=== PATIENT | female | born 1995 | race Caucasian/White ===

== ENCOUNTER 2022-10-09 14:22 | Emergency (ER) | payer OTHER ==
[~2022-10-09] VITALS: Ht 162.6 cm; Wt 72.6 kg
[2022-10-09 14:36] VITALS: BP 115/68
--- NOTE | 2022-10-09 14:40 | NUR ---
AMB. TO BED 8 W NO DIFFICULTY. NO DISTRESS. PT. WILL PRODUCE URINE SAMPLE
[2022-10-09] MEDS ORDERED: NACL 0.9% 1,000 ML IV SCH (15:05)
[2022-10-09] MEDS ORDERED: KETOROLAC 30 MG/ML VIAL IVP ONE (15:05)
[2022-10-09] MEDS ORDERED: ONDANSETRON 4 MG/2 ML VIAL IVP ONE (15:05)
--- NOTE | 2022-10-09 15:07 | NUR ---
27 Y/O F BIB SELF C/O R MID SIDE ABD PAIN 12/22 SINCE THIS MORNING. PT ALSOC C/O N/V. NKA OR PMH
--- NOTE | 2022-10-09 15:18 | NUR ---
The patient's care was reviewed and supervised by EBENEZER DÍAZ RN.
--- NOTE | 2022-10-09 15:19 | NUR ---
ULTRASOUND AT BEDSIDE.
[2022-10-09 15:47] LABS: BASOPHILS # (AUTO) 0.1 K/uL (0.00-0.22); BASOPHILS % (AUTO) 1.3 % (0.0-2.0); EOSINOPHILS # (AUTO) 0.1 K/uL (0-0.4); EOSINOPHILS % (AUTO) 1.9 % (0.0-4.0); HEMATOCRIT 32.7 % (36-48); HEMOGLOBIN 12.3 g/dL (12.0-16.0); LYMPHOCYTES # (AUTO) 1.6 K/uL (2.5-16.5); LYMPHOCYTES % (AUTO) 21.6 % (20.5-51.1); MEAN CORPUSCULAR HEMOGLOBIN 33 pg (27-31); MEAN CORPUSCULAR HGB CONC 38 g/dL (33-37); MEAN CORPUSCULAR VOLUME 88.1 fL (80-94); MONOCYTES # (AUTO) 0.7 K/uL (0.8-1.0); MONOCYTES % (AUTO) 9.7 % (1.7-9.3); NEUTROPHILS # (AUTO) 4.8 K/uL (1.8-7.7); NEUTROPHILS % (AUTO) 65.5 % (42.2-75.2); PLATELET COUNT (AUTO) 251 K/uL (140-450); RED BLOOD CELL COUNT(AUTO) 3.71 MIL/uL (4.20-5.40); RED CELL DISTRIBUTION WIDTH 16.5 % (11.6-13.7); WHITE BLOOD COUNT (AUTO) 7.3 K/uL (4.8-10.8)
[2022-10-09 15:52] LABS: APPEARANCE,URINE CLEAR (CLEAR); BILIRUBIN,URINE NEGATIVE (NEGATIVE); BLOOD, URINE NEGATIVE (NEGATIVE); COLOR,URINE YELLOW (YELLOW); LEUKOCYTE ESTERASE ,URINE NEGATIVE (NEGATIVE); NITRITE, URINE NEGATIVE (NEGATIVE); UGLUCOSE NEGATIVE (NEGATIVE)
[2022-10-09 15:59] LABS: ALBUMIN 3.4 g/dL (3.4-5.0); ANION GAP 10.9 (8-16); CARBON DIOXIDE 27.2 mmol/L (21-32); CREATININE 0.8 mg/dL (0.6-1.3); POTASSIUM 4.1 mmol/L (3.5-5.1); TOTAL BILIRUBIN 1.6 mg/dL (0.0-1.0)
[2022-10-09] MEDS ORDERED: ONDA8TAB87 PO (16:30)
[2022-10-09] MEDS ORDERED: IBUP-2213 PO (16:30)
--- NOTE | 2022-10-09 16:46 | NUR ---
Patient discharged with v/s stable. Written and verbal after care instructions given and explained. Patient verbalized understanding. Ambulatory with steady gait. All questions addressed prior to discharge. Advised to follow up with PMD.
== END 2022-10-09 16:46 | disposition home or self-care (01) ==
LOC: MED 14:22
DX: R10.11 Right upper quadrant pain (principal); R11.2 Nausea with vomiting, unspecified; K21.9 Gastro-esophageal reflux disease without esophagitis
CPT/HCPCS: 36415; 76705; 80053; 81003; 81025; 83690; 85025; 96361; 96374; 96375; 99285; J1885; J2405; J7030; Q0092

== ENCOUNTER 2022-10-12 18:12 | Emergency (ER) | payer OTHER ==
[~2022-10-12] VITALS: Ht 160 cm; Wt 79.4 kg
[~2022-10-12 18:12] MED LIST: IBUP-2213 PO; ONDA8TAB87 PO
[2022-10-12 18:20] VITALS: BP 120/76
--- NOTE | 2022-10-12 18:27 | NUR ---
ABDOMINAL PAIN (03/24) X 4 DAYS WITH NAUSEA, WAS SEEN HERE THIS PAST THURSDAY FOR THE SAME, BACK TODAY WITH NO RELIEF. LAST BM TODAY. DENIES FEVERS BUT EXPERIENCING CHILLS.
--- NOTE | 2022-10-12 18:32 | NUR ---
PATIENT AMBULATED TO BED 7.
[2022-10-12] MEDS ORDERED: NACL 0.9% 1,000 ML IV ONE (18:55)
[2022-10-12] MEDS ORDERED: MORPHINE SULFATE 4 MG/ML SYR IVP ONE (18:55)
[2022-10-12] MEDS ORDERED: ONDANSETRON 4 MG/2 ML VIAL IVP ONE (18:55)
[2022-10-12 19:01] LABS: APPEARANCE,URINE CLEAR (CLEAR); BILIRUBIN,URINE NEGATIVE (NEGATIVE); BLOOD, URINE NEGATIVE (NEGATIVE); COLOR,URINE YELLOW (YELLOW); LEUKOCYTE ESTERASE ,URINE NEGATIVE (NEGATIVE); NITRITE, URINE NEGATIVE (NEGATIVE); UGLUCOSE NEGATIVE (NEGATIVE)
[2022-10-12 19:06] LABS: BASOPHILS # (AUTO) 0.1 K/uL (0.00-0.22); BASOPHILS % (AUTO) 1.1 % (0.0-2.0); EOSINOPHILS # (AUTO) 0.2 K/uL (0-0.4); EOSINOPHILS % (AUTO) 2.9 % (0.0-4.0); HEMATOCRIT 36.6 % (36-48); HEMOGLOBIN 13.3 g/dL (12.0-16.0); LYMPHOCYTES # (AUTO) 1.8 K/uL (2.5-16.5); LYMPHOCYTES % (AUTO) 22.6 % (20.5-51.1); MEAN CORPUSCULAR HEMOGLOBIN 32 pg (27-31); MEAN CORPUSCULAR HGB CONC 36 g/dL (33-37); MEAN CORPUSCULAR VOLUME 88.8 fL (80-94); MONOCYTES # (AUTO) 0.6 K/uL (0.8-1.0); MONOCYTES % (AUTO) 7.1 % (1.7-9.3); NEUTROPHILS # (AUTO) 5.4 K/uL (1.8-7.7); NEUTROPHILS % (AUTO) 66.3 % (42.2-75.2); PLATELET COUNT (AUTO) 268 K/uL (140-450); RED BLOOD CELL COUNT(AUTO) 4.12 MIL/uL (4.20-5.40); RED CELL DISTRIBUTION WIDTH 16.9 % (11.6-13.7); WHITE BLOOD COUNT (AUTO) 8.1 K/uL (4.8-10.8)
[2022-10-12 19:26] LABS: ALBUMIN 3.7 g/dL (3.4-5.0); ANION GAP 10.4 (8-16); CARBON DIOXIDE 27.4 mmol/L (21-32); CREATININE 0.8 mg/dL (0.6-1.3); POTASSIUM 3.8 mmol/L (3.5-5.1)
[2022-10-12 19:40] VITALS: BP 110/67
--- NOTE | 2022-10-12 19:40 | NUR ---
27 Y/O F presents with throbbing abdomial pain 10/10 all over pt stated. pt stated some nausea but denied any VD. pt a&Ox4, skin intact, respirations even and unlabored. mom is bedside pmh-anxiety, depression, acid reflux nka
--- NOTE | 2022-10-12 19:40 | NUR ---
assumed care for pt. mom bedside. pt ambulatory to restroom without assistance.
[2022-10-12] MEDS ORDERED: MIRABULK PO (20:55)
--- NOTE | 2022-10-12 21:15 | NUR ---
Patient discharged with v/s stable. Written and verbal after care instructions given and explained. Patient alert, oriented and verbalized understanding of instructions. Ambulatory with steady gait. All questions addressed prior to discharge. ID band removed. Patient advised to follow up with PMD. Rx of Polyethylene Glycol [id number] given. Opportunity to ask questions provided and answered.
--- NOTE | 2022-10-12 21:23 | NUR ---
The patient's care was reviewed and supervised by Flor Multani RN, RN.
== END 2022-10-12 21:15 | disposition home or self-care (01) ==
LOC: MED 18:12
DX: K59.00 Constipation, unspecified (principal); R10.33 Periumbilical pain; R11.0 Nausea; K21.9 Gastro-esophageal reflux disease without esophagitis; Z79.899 Other long term (current) drug therapy
CPT/HCPCS: 36415; 74177; 80053; 81003; 83605; 83690; 85025; 87040; 96361; 96374; 96375; 99285; J2270; J2405; Q9967; J7030

== ENCOUNTER 2023-02-10 23:10 | Emergency (ER) | payer OTHER ==
[~2023-02-10] VITALS: Ht 162.6 cm; Wt 76.7 kg
[~2023-02-10 23:10] MED LIST changes: +MIRABULK PO
[2023-02-10 23:20] VITALS: BP 113/69; PULSE 90; RESP 16; TEMP 98; O2SAT 99
[2023-02-11] MEDS ORDERED: MORPHINE SULFATE 4 MG/ML SYR IM ONE (02:50)
[2023-02-11] MEDS ORDERED: ACET-5629 PO (02:51)
[2023-02-11 03:33] VITALS: BP 121/72; PULSE 80; RESP 15; TEMP 98; O2SAT 99
== END 2023-02-11 03:34 | disposition home or self-care (01) ==
LOC: MED 23:10
DX: I82.622 Acute embolism and thrombosis of deep veins of left upper extremity (principal); K21.9 Gastro-esophageal reflux disease without esophagitis; Z79.899 Other long term (current) drug therapy
CPT/HCPCS: 96372; 99283; J2270

== ENCOUNTER 2023-06-19 23:06 | Emergency (ER) | payer OTHER ==
[~2023-06-19] VITALS: Ht 162.6 cm; Wt 78.9 kg
[~2023-06-19 23:06] MED LIST changes: +ACET-5629 PO
[2023-06-19 23:19] VITALS: BP 120/73; PULSE 92; RESP 16; TEMP 98; O2SAT 99
[2023-06-20] MEDS ORDERED: KETOROLAC 60 MG/2 ML VIAL IM ONE (02:30)
[2023-06-20] MEDS ORDERED: NAPR-54 PO (02:49)
[2023-06-20 03:10] VITALS: BP 120/73; PULSE 92; RESP 16; TEMP 98; O2SAT 99
== END 2023-06-20 03:10 | disposition home or self-care (01) ==
LOC: MED 23:06
DX: M75.22 Bicipital tendinitis, left shoulder (principal); Z79.899 Other long term (current) drug therapy
CPT/HCPCS: 73080; 96372; 99283; J1885; Q0092

== ENCOUNTER 2023-07-29 19:58 | Emergency (ER) | payer OTHER ==
[~2023-07-29] VITALS: Ht 162.6 cm; Wt 78.5 kg
[~2023-07-29 19:58] MED LIST changes: +NAPR-54 PO
[2023-07-29 20:41] VITALS: BP 139/94; PULSE 102; RESP 16; TEMP 97.6; O2SAT 99
[2023-07-29 21:03] VITALS: O2SAT 100
[2023-07-29 21:31] LABS: BASOPHILS # (AUTO) 0.1 K/uL (0.00-0.22); BASOPHILS % (AUTO) 1.2 % (0.0-2.0); EOSINOPHILS # (AUTO) 0.3 K/uL (0-0.4); EOSINOPHILS % (AUTO) 3.3 % (0.0-4.0); HEMATOCRIT 36.9 % (36-48); HEMOGLOBIN 13.7 g/dL (12.0-16.0); LYMPHOCYTES # (AUTO) 2.6 K/uL (2.5-16.5); LYMPHOCYTES % (AUTO) 32.4 % (20.5-51.1); MEAN CORPUSCULAR HEMOGLOBIN 34 pg (27-31); MEAN CORPUSCULAR HGB CONC 37 g/dL (33-37); MEAN CORPUSCULAR VOLUME 91.2 fL (80-94); MONOCYTES # (AUTO) 0.7 K/uL (0.8-1.0); MONOCYTES % (AUTO) 9.1 % (1.7-9.3); NEUTROPHILS # (AUTO) 4.3 K/uL (1.8-7.7); PLATELET COUNT (AUTO) 280 K/uL (140-450); RED BLOOD CELL COUNT(AUTO) 4.05 MIL/uL (4.20-5.40); RED CELL DISTRIBUTION WIDTH 14.3 % (11.6-13.7); WHITE BLOOD COUNT (AUTO) 7.9 K/uL (4.8-10.8)
[2023-07-29 21:50] LABS: CALCIUM 8.7 mg/dL (8.5-10.1); CARBON DIOXIDE 29.9 mmol/L (21-32); CREATININE 0.7 mg/dL (0.6-1.3); POTASSIUM 3.9 mmol/L (3.5-5.1)
[2023-07-29 21:53] LABS: INR 0.95 (0.8-1.2); PARTIAL THROMBOPLASTIN TIME 31.5 secs (22-35.6)
[2023-07-29 21:57] LABS: ALBUMIN 3.6 g/dL (3.4-5.0); BILIRUBIN,DIRECT 0.3 mg/dL (0.0-0.3); TOTAL BILIRUBIN 1.7 mg/dL (0.0-1.0)
[2023-07-29] MEDS: NACL 0.9% 1,000 ML IV ONE (22:31)
[2023-07-29] MEDS: ACETAMINOPHEN EXTRA STRENGTH 500 MG TAB PO ONE (22:34)
[2023-07-29] MEDS: DEXAMETHASONE 10 MG/ML VIAL IVP ONE (22:35)
[2023-07-29] MEDS: METOCLOPRAMIDE 10 MG/2 ML INJ VIAL IVP ONE (22:35)
[2023-07-29] MEDS: diphenhydrAMINE 50 MG/ML VIAL IVP ONE (22:37)
[2023-07-29 23:12] VITALS: O2SAT 100
[2023-07-30] MEDS ORDERED: ACET-503 PO (00:26)
[2023-07-30 01:01] VITALS: BP 103/73; PULSE 93; RESP 16; TEMP 97.6; O2SAT 98
== END 2023-07-30 01:01 | disposition home or self-care (01) ==
LOC: MED 19:58
DX: R51.9 Headache, unspecified (principal); K21.9 Gastro-esophageal reflux disease without esophagitis; Z88.8 Allergy status to other drugs, medicaments and biological substances; Z79.899 Other long term (current) drug therapy
CPT/HCPCS: 36415; 70450; 80048; 80076; 85025; 85610; 85730; 96361; 96374; 96375; 99285; J1100; J1200; J2765; J7030

== ENCOUNTER 2023-11-14 19:59 | Emergency (ER) | payer OTHER ==
[~2023-11-14] VITALS: Ht 162.6 cm; Wt 79.8 kg
[~2023-11-14 19:59] MED LIST changes: +ACET-503 PO; +NAPR-337 PO; -NAPR-54 PO
[2023-11-14 20:03] VITALS: BP 104/70; PULSE 86; RESP 16; TEMP 97.3; O2SAT 99
[2023-11-14 21:11] VITALS: BP 115/69; PULSE 83; RESP 12; O2SAT 99
[2023-11-14 21:37] LABS: APPEARANCE,URINE CLEAR (CLEAR); BILIRUBIN,URINE NEGATIVE (NEGATIVE); BLOOD, URINE 2+ (NEGATIVE); COLOR,URINE YELLOW (YELLOW); LEUKOCYTE ESTERASE ,URINE TRACE (NEGATIVE); NITRITE, URINE NEGATIVE (NEGATIVE); PH,URINE 7.5 (5.0-9.0); PROTEIN,URINE NEGATIVE (NEGATIVE); UGLUCOSE NEGATIVE (NEGATIVE); UROBILINOGEN,URINE 0.2 EU/dL (0.2 - 1)
[2023-11-14 21:37] LABS: FLU A ANTIGEN negative (NEGATIVE); FLU B ANTIGEN NEGATIVE (NEGATIVE)
[2023-11-14 21:40] LABS: TOTAL BILIRUBIN 0.6 mg/dL (0.0-1.0)
[2023-11-14 21:41] LABS: ALBUMIN 3.2 g/dL (3.4-5.0); BILIRUBIN,DIRECT 0.1 mg/dL (0.0-0.3); TOTAL PROTEIN, SERUM 7.1 g/dL (6.4-8.2)
[2023-11-14 21:46] LABS: BASOPHILS # (AUTO) 0.1 K/uL (0.00-0.22); BASOPHILS % (AUTO) 0.7 % (0.0-2.0); EOSINOPHILS # (AUTO) 0.2 K/uL (0-0.4); EOSINOPHILS % (AUTO) 2.2 % (0.0-4.0); HEMATOCRIT 39.5 % (36-48); HEMOGLOBIN 14.7 g/dL (12.0-16.0); LYMPHOCYTES # (AUTO) 2.5 K/uL (2.5-16.5); LYMPHOCYTES % (AUTO) 28.6 % (20.5-51.1); MEAN CORPUSCULAR HEMOGLOBIN 33 pg (27-31); MEAN CORPUSCULAR HGB CONC 37 g/dL (33-37); MEAN CORPUSCULAR VOLUME 87.8 fL (80-94); MONOCYTES # (AUTO) 0.7 K/uL (0.8-1.0); MONOCYTES % (AUTO) 7.9 % (1.7-9.3); NEUTROPHILS # (AUTO) 5.3 K/uL (1.8-7.7); NEUTROPHILS % (AUTO) 60.6 % (42.2-75.2); PLATELET COUNT (AUTO) 288 K/uL (140-450); RED CELL DISTRIBUTION WIDTH 14.8 % (11.6-13.7); WHITE BLOOD COUNT (AUTO) 8.7 K/uL (4.8-10.8)
[2023-11-14 21:50] LABS: BACTERIA,URINE FEW /HPF (None Seen); MUCUS,URINE None Seen /LPF (None Seen); TRICHOMONAS,URINE None Seen /HPF (None Seen); WHITE BLOOD CELL CASTS,URINE None Seen /LPF (None Seen); YEAST,URINE None Seen /HPF (None Seen)
[2023-11-14 21:58] LABS: ANION GAP 14.4 (8-16); CARBON DIOXIDE 26.1 mmol/L (21-32); CREATININE 0.7 mg/dL (0.6-1.3); POTASSIUM 3.5 mmol/L (3.5-5.1)
[2023-11-14] MEDS ORDERED: ONDA-188 PO (23:19)
== END 2023-11-14 23:49 | disposition home or self-care (01) ==
LOC: MED 19:59
DX: R53.83 Other fatigue (principal); Z20.822 Contact with and (suspected) exposure to COVID-19; R62.50 Unspecified lack of expected normal physiological development in childhood; R11.0 Nausea; K21.9 Gastro-esophageal reflux disease without esophagitis; Z88.8 Allergy status to other drugs, medicaments and biological substances; Z79.899 Other long term (current) drug therapy
CPT/HCPCS: 36415; 71045; 80048; 80076; 81001; 81002; 83690; 85025; 85379; 87086; 93005; 99285

== ENCOUNTER 2024-04-06 21:15 | Emergency (ER) | payer OTHER ==
[~2024-04-06] VITALS: Ht 160 cm; Wt 77.6 kg
[~2024-04-06 21:15] MED LIST changes: +ONDA-188 PO
[2024-04-06 21:34] VITALS: BP 113/73; PULSE 101; RESP 16; TEMP 98.4; O2SAT 100
[2024-04-06 23:10] LABS: BASOPHILS # (AUTO) 0.1 K/uL (0.00-0.22); BASOPHILS % (AUTO) 0.8 % (0.0-2.0); EOSINOPHILS # (AUTO) 0.2 K/uL (0-0.4); EOSINOPHILS % (AUTO) 2.2 % (0.0-4.0); HEMATOCRIT 36.4 % (36-48); HEMOGLOBIN 13.2 g/dL (12.0-16.0); LYMPHOCYTES # (AUTO) 2.1 K/uL (2.5-16.5); LYMPHOCYTES % (AUTO) 24.5 % (20.5-51.1); MEAN CORPUSCULAR HEMOGLOBIN 33 pg (27-31); MEAN CORPUSCULAR HGB CONC 36 g/dL (33-37); MEAN CORPUSCULAR VOLUME 90.5 fL (80-94); MONOCYTES # (AUTO) 0.7 K/uL (0.8-1.0); MONOCYTES % (AUTO) 7.9 % (1.7-9.3); NEUTROPHILS # (AUTO) 5.6 K/uL (1.8-7.7); NEUTROPHILS % (AUTO) 64.6 % (42.2-75.2); PLATELET COUNT (AUTO) 277 K/uL (140-450); RED BLOOD CELL COUNT(AUTO) 4.03 MIL/uL (4.20-5.40); RED CELL DISTRIBUTION WIDTH 14.3 % (11.6-13.7); WHITE BLOOD COUNT (AUTO) 8.7 K/uL (4.8-10.8)
[2024-04-06 23:27] LABS: ANION GAP 11.3 (8-16); CALCIUM 8.7 mg/dL (8.5-10.1); CARBON DIOXIDE 27.4 mmol/L (21-32); CREATININE 0.7 mg/dL (0.6-1.3); POTASSIUM 3.7 mmol/L (3.5-5.1)
[2024-04-06 23:33] LABS: ALBUMIN 3.4 g/dL (3.4-5.0); BILIRUBIN,DIRECT 0.3 mg/dL (0.0-0.3); TOTAL BILIRUBIN 1.4 mg/dL (0.0-1.0); TOTAL PROTEIN, SERUM 6.9 g/dL (6.4-8.2)
[2024-04-06] MEDS: ALUMINUM HYD/MAG/SIMETHICONE 30 ML UDC PO ONE (23:41)
[2024-04-07 00:01] LABS: APPEARANCE,URINE CLEAR (CLEAR); BILIRUBIN,URINE NEGATIVE (NEGATIVE); BLOOD, URINE NEGATIVE (NEGATIVE); COLOR,URINE YELLOW (YELLOW); LEUKOCYTE ESTERASE ,URINE NEGATIVE (NEGATIVE); NITRITE, URINE NEGATIVE (NEGATIVE); PROTEIN,URINE NEGATIVE (NEGATIVE); UGLUCOSE NEGATIVE (NEGATIVE); UROBILINOGEN,URINE 0.2 EU/dL (0.2 - 1)
[2024-04-07] MEDS ORDERED: FAMO-92 PO (00:16)
[2024-04-07] MEDS ORDERED: SUCR1TAB56 PO (00:16)
[2024-04-07 00:26] VITALS: BP 121/79; PULSE 89; RESP 16; TEMP 98.1; O2SAT 100
== END 2024-04-07 00:26 | disposition home or self-care (01) ==
LOC: MED 21:15
DX: K29.70 Gastritis, unspecified, without bleeding (principal); K21.9 Gastro-esophageal reflux disease without esophagitis; Z79.899 Other long term (current) drug therapy; Z88.8 Allergy status to other drugs, medicaments and biological substances
CPT/HCPCS: 36415; 80048; 80076; 81003; 81025; 83690; 85025; 93005; 99284